=== PATIENT | female | born 1970 | race Caucasian/White ===

== ENCOUNTER 2018-03-18 08:32 | Emergency (ER) | payer OTHER ==
[~2018-03-18] VITALS: Ht 167.6 cm; Wt 59.1 kg
[2018-03-18 08:37] VITALS: BP 123/77; TEMP 98.8
[2018-03-18 08:58] LABS: MUCOUS Present /lpf; PH 8 (5-8); SQUAMOUS EPITHELIAL 0-2 /hpf; URINE APPEARANCE Hazy; URINE BACTERIA Rare /hpf; URINE BILIRUBIN Negative (NEGATIVE); URINE BLOOD 2+ (NEGATIVE); URINE COLOR Yellow; URINE GLUCOSE Negative (NEGATIVE); URINE KETONE Negative (NEGATIVE); URINE LEUKOCYTE ESTERASE 2+ (NEGATIVE); URINE NITRATE Negative (NEGATIVE); URINE PROTEIN(semi-quant) 2+ (NEGATIVE); URINE RBC >50 /hpf; URINE UROBILINOGEN Negative (NEGATIVE); URINE WBC >50 /hpf
[2018-03-18 09:05] LABS: COLLECTION METHOD CLEAN CATCH
[2018-03-18] MEDS ORDERED: PYRIDIUM200 M1 PO (09:08)
[2018-03-18] MEDS ORDERED: MACROBID 1100 MG/CAP PO (09:08)
[2018-03-18 09:19] VITALS: PULSE 96
== END 2018-03-18 09:20 | disposition home or self-care (01) ==
LOC: COL.ER 08:32
PROVIDERS: Nurse Practitioner Primary Care
DX: N30.90 Cystitis, unspecified without hematuria (principal)